=== PATIENT | male | born 1955 | race Two or more races ===

== ENCOUNTER 2018-08-27 08:15 | Day surgery (SDC) | payer BC ==
[2018-08-27] VITALS (8 sets, daily range): BP systolic 107–122; BP diastolic 70–80
[~2018-08-27] VITALS: Ht 170.2 cm; Wt 68.9 kg
[~2018-08-27 08:15] MED LIST: AMBIEN5 MG ORAL; ASPIRIN EC81 MG ORAL; BREO ELLIPTA 11 EACH IH; FLONASE ALLERG9.9 ML NS; METFORMIN HCL500 M1 ORAL; NASONEX17 GM NASAL; PREVACID30 MG ORAL; SINGULAIR10 MG ORAL; VITAMIN D250000 UNI1 ORAL
[2018-08-27] MEDS ORDERED: CELEXA10 MG ORAL (09:03)
[2018-08-27] MEDS ORDERED: CRESTOR10 M2 ORAL (09:03)
--- NOTE | 2018-08-27 09:17 | Short Stay Surgery H&P ---
History of Present Illness History of Present Illness Chief Complaint screening colon, GERD HPI Ivy Oneill is a 63 year old male who was admitted on for Abdominal Pain Patient History Allergies: Coded Allergies: No Known Allergies (Unverified , 08/26/18) PAST MEDICAL HISTORY: (1) Prostate CA (2) Hypercholesteremia (3) DM Medication History Scheduled Aspirin Ec* (Aspirin Ec*), 81 MG ORAL DAILY, (Reported) Citalopram Hydrobromide (Celexa), 10 MG ORAL DAILY, (Reported) Ergocalciferol (Vitamin D2)* (Vitamin D*), 50,000 UNIT ORAL ONCE A WEEK, ( Reported) Fluticasone Propionate (Flonase Allergy Relief), 9.9 ML NS DAILY, (Reported) Lansoprazole* (Prevacid*), 30 MG ORAL DAILY, (Reported) Mometasone Furoate (Nasonex), 2 SPRAYS NASAL DAILY, (Reported) Rosuvastatin Calcium* (Crestor*), 10 MG ORAL DAILY, (Reported) Miscellaneous Medications Fluticasone/Vilanterol (Breo Ellipta 100-25 Mcg INH), 1 EACH IH, (Reported) Discontinued Medications Metformin Hcl* (Metformin Hcl*), 500 MG ORAL TWICE A DAY, (Reported) Discontinued Reason: Pt stopped taking med Montelukast Sodium* (Singulair*), 10 MG ORAL DAILY, (Reported) Discontinued Reason: Pt stopped taking med Zolpidem Tartrate* (Ambien*), 5 MG ORAL BEDTIME PRN for Insomnia, (Reported) Discontinued Reason: Pt stopped taking med Review of Systems Cardiovascular: Reports: no symptoms Respiratory: Reports: no symptoms Skeletal: Reports: no symptoms Gastrointestinal: Reports: gastro esophageal reflux disease Genitourinary: Reports: no symptoms Neurologic: Reports: no symptoms Endocrine: Reports: no symptoms Hematologic: Reports: no symptoms Physical Exam Vital Signs Last Vital Signs Date Time Temp Pulse Resp B/P (MAP) Pulse Ox O2 Delivery O2 Flow Rate FiO2 08/27/18 09:04 98.0 71 20 117/77 97 Room Air Skin: normal HENT: normal Heart: normal Lungs: normal Abdomen: normal Extremities: normal Plan Plan of Care esophagogastroduodenoscopy and colonoscopy Attestation Are the patient's medical conditions optimized for surgery? Attestation Response: yes Jose Davenport MD 23, 2019 09:17
--- NOTE | 2018-08-27 09:18 | Pre-Procedure Note/Attestation ---
Pre-Procedure Note/Attestation Complete Prior to Procedure Planned Procedure: not applicable Procedure Narrative: esophagogastroduodenoscopy and colonoscopy Indications for Procedure Pre-Operative Diagnosis: screening colonoscopy GERD Attestation I attest that I discussed the nature of the procedure; its benefits; risks and complications; and alternatives (and the risks and benefits of such alternatives ), prior to the procedure, with the patient (or the patient's legal national account representative). I attest that, if there was a reasonable possibility of needing a blood transfusion, the patient (or the patient's legal national account representative) was given the [facility] standardized written summary, pursuant to the Jorje Knappa Blood Safety Act ([place] Health and Safety Code # 1645, as amended). I attest that I re-evaluated the patient just prior to the surgery and that there has been no change in the patient's H&P, except as documented below: Jose Davenport MD Aug 27, 2018 09:18
--- NOTE | 2018-08-27 09:51 | Anethesia Preoperative Eval ---
Anesthesia Pre-op PMH/ROS General Date of Evaluation: Aug 27, 2018 Time of Evaluation: 09:32 Anesthesiologist: Evelin Doran CRNA ASA Score: ASA 2 Mallampati Score Class I : Soft palate, uvula, fauces, pillars visible Class II: Soft palate, uvula, fauces visible Class III: Soft palate, base of uvula visible Class IV: Only hard plate visible Mallampati Classification: Class III Surgeon: Ethel Diagnosis: Abdominal pain Surgical Procedure: EGD and colonscopy screening Anesthesia History: none Social History: smoking Family History: no anesthesia problems Allergies: Coded Allergies: No Known Allergies (Unverified , 08/26/18) Medications: see eMAR Patient NPO?: Yes NPO Date: Aug 27, 2018 NPO Time: 00:00 Past Medical History Cardiovascular: Denies: HTN, CAD, HI, valve dz, arrhythmia, other Pulmonary: Reports: other - prostate CA s/p prostatectomy; Denies: asthma, COPD, VITO Gastrointestinal/Genitourinary: Reports: GERD; Denies: CRI, ESRD, other Neurologic/Psychiatric: Denies: dementia, CVA, depression/anxiety, TIA, other Endocrine: Reports: other - pre diabetes, benign adrenal mass s/p adrenalectomy HEENT: Denies: cataract (L), cataract (R), glaucoma, [place] (L), [place] (R), other Hematology/Immune: Denies: anemia, DVT, bleeding disorder, other Musculoskeletal/Integumentary: Denies: OA, RA, DJD, DDD, edema, other PMH Narrative: as above PSxH Narrative: as above Anesthesia Pre-op Phys. Exam Physician Exam Last Vital Signs Date Time Temp Pulse Resp B/P (MAP) Pulse Ox O2 Delivery O2 Flow Rate FiO2 08/27/18 09:04 98.0 71 20 117/77 97 Room Air Constitutional: NAD Neurologic: CN 2-12 intact Cardiovascular: RRR Respiratory: CTA Gastrointestinal: S/NT/ND Airway Exam Mallampati Score: Class III MO: full Neck: no issues TMD: > 3FB ROM: full Teeth: intact Dentures: no upper, no lower Anesthesia Pre-op A/P Studies Pre-op Studies: EKG - NSR Risk Assessment & Plan Assessment: ASA 2 ok to proceed Plan: MAC Status Change Before Surgery: Yes Pre-Antibiotics Given Within 1 Hr of Incision: No Evelin Doran CRNA Aug 27, 2018 09:51
[2018-08-27] MEDS ORDERED: Lidocaine 1% MPF 10mg/ml 5ml ONE (10:00)
[2018-08-27] MEDS ORDERED: Propofol 200mg/20ml IV ONE (10:00)
--- NOTE | 2018-08-27 10:10 | Endoscopy Procedure Note ---
Endoscopy Procedure Note General Indication for Procedure: screening Procedures Performed: EGD, colonoscopy Operative Findings/Diagnosis: one polyp, gastritis Specimen: yes Pt Tolerated Procedure Well: Yes Estimated Blood Loss: none Anesthesia Anesthesiologist: alfreda Anesthesia: MAC Inserted Devices Implant(s) used?: No Quality Quality of Bowel Preparation: Good Did scope reach the cecum?: Yes Was there any complications?: No GI Core Measures 50 yrs or older w/o bx or poly: No 10yrs. F/U not recommended: Yes If not recommended, why?: Above average risk 10 yrs. F/U needed: Yes 18 years or older w/prev. colo: No Jose Davenport MD Aug 27, 2018 10:10
--- NOTE | 2018-08-27 10:18 | Immediate Post-Op Evaluation ---
Immediate Post-Op Evalulation Immediate Post-Op Evalulation Procedure: EGD, colonoscopy Date of Evaluation: Aug 27, 2018 Time of Evaluation: 10:12 IV Fluids: 0.9 NS 500 ml Blood Pressure Systolic: 107 Blood Pressure Diastolic: 71 Pulse Rate: 64 Respiratory Rate: 19 O2 Sat by Pulse Oximetry: 99 Temperature (Fahrenheit): 97.7 Pain Score (1-10): 0 Nausea: No Vomiting: No Complications none Patient Status: awake, patent Hydration Status: adequate Given Within 1 Hr of Incision: Evelin Parry CRNA Aug 27, 2018 10:18
--- NOTE | 2018-08-27 11:06 | 48 Hour Post Anesthesia Eval ---
Post Anesthesia Evaluation Procedure: EGD, colonoscopy Date of Evaluation: Aug 27, 2018 Time of Evaluation: 11:05 Blood Pressure Systolic: 122 0: 70 Pulse Rate: 64 Respiratory Rate: 20 Temperature (Fahrenheit): 97.9 O2 Sat by Pulse Oximetry: 98 Airway: patent Nausea: No Vomiting: No Pain Intensity: 0 Hydration Status: adequate Cardiopulmonary Status: stable Mental Status/LOC: patient returned to baseline Follow-up Care/Observations: per GI Post-Anesthesia Complications: none Follow-up care needed: ready to discharge Evelin Doran CRNA Aug 27, 2018 11:06
--- NOTE | 2018-08-27 15:15 | Procedure Note ---
DATE OF PROCEDURE: 08/27/2018 SURGEON: Jose Davenport M.D. REFERRING PHYSICIAN: Shaylee Joyce M.D. PROCEDURE: Upper endoscopy with biopsy and colonoscopy with biopsy. ANESTHESIA: Per Evelin RUBIN. INSTRUMENT: Olympus adult flexible upper endoscope and colonoscope. INDICATION: Screening colonoscopy evaluation and chronic GERD. REASON FOR PROCEDURE: The procedure, risks, benefits, and possible consequences, including hemorrhage, aspiration, perforation and infection, and alternative treatments, were explained to the patient/legal guardian by Dr. Jose Davenport and the patient/legal guardian understood and accepted these risks. PROCEDURE IN DETAIL: After informed consent was obtained and the patient was adequately sedated, Olympus upper endoscope was advanced from mouth into the second portion of the duodenum and retroflexion was performed in the stomach. The patient had diffuse gastritis. Random biopsy from antrum and body was obtained to rule out H. pylori infection. The patient had evidence of some findings in esophagus suspicious but not classical for eosinophilic esophagitis. Biopsy from the distal esophagus was obtained. At this time, the upper endoscope was retrieved and the patient was turned over for colonoscopy. First, rectal exam was performed showed positive for internal hemorrhoids. Then, the scope was advanced from the rectum into the cecum then subsequently in the terminal ileum. Quality of prep was very good. The patient had one diminutive polyp in the proximal ascending colon removed with the cold biopsy forceps technique. No further polyp was seen in this colonoscopy examination. There was some scattered diverticulosis in the left colon. Retroflexion of rectum showed evidence of medium-sized nonbleeding internal hemorrhoids. The patient tolerated the procedure very well without any complication. SUMMARY OF FINDINGS: 1. Gastritis, status post biopsy. 2. Possible eosinophilic esophagitis, status post biopsy. 3. One colonic polyp removed, see above for details. 4. Scattered diverticulosis. 5. Internal hemorrhoids. RECOMMENDATIONS: 1. Follow up biopsy results and treat accordingly. 2. We will recommend repeat colonoscopy in 5 years. I want to thank, Dr. Shaylee Joyce, for this kind referral. Jose aDvenport M.D. DR: DORIE JOB#: [id number] CC: Shaylee Joyce M.D.; Fax#: [phone]
--- NOTE | 2018-08-31 11:21 | Cardiology Report ---
APPROVED REPORT EKG Measurement Heart [id number] Normal sinus rhythm Normal ECG
== END 2018-08-27 11:25 | disposition home or self-care (01) ==
LOC: GAS 08:15
DX: Z12.11 Encounter for screening for malignant neoplasm of colon (principal); D12.2 Benign neoplasm of ascending colon; K57.30 Diverticulosis of large intestine without perforation or abscess without bleeding; K64.8 Other hemorrhoids; K21.9 Gastro-esophageal reflux disease without esophagitis; K29.50 Unspecified chronic gastritis without bleeding; K31.7 Polyp of stomach and duodenum; E11.9 Type 2 diabetes mellitus without complications; Z79.84 Long term (current) use of oral hypoglycemic drugs; E78.00 Pure hypercholesterolemia, unspecified; F17.200 Nicotine dependence, unspecified, uncomplicated; Z85.46 Personal history of malignant neoplasm of prostate; Z90.79 Acquired absence of other genital organ(s)
CPT/HCPCS: 43239; 45380; 82962; 93005; J2704; 94003; 94150